=== PATIENT | male | born 1965 | race Caucasian/White ===

== ENCOUNTER 2025-03-05 15:19 | Outpatient (CLI) | payer OTHER | END 2025-03-05 15:20 | disposition home or self-care (01) | LOC: CT 15:19 | PROVIDERS: ATTEND Family Medicine | DX: Z12.2 Encounter for screening for malignant neoplasm of respiratory organs (principal); F17.218 Nicotine dependence, cigarettes, with other nicotine-induced disorders | CPT/HCPCS: 71271 ==